=== PATIENT | female | born 1975 | race Two or more races ===

== ENCOUNTER 2024-03-11 16:21 | Emergency (ER) | payer OTHER ==
[~2024-03-11] VITALS: Ht 167.6 cm; Wt 91.0 kg
[2024-03-11 16:30] VITALS: O2SAT 99
[2024-03-11] MEDS: LORAZEPAM 0.5MG TABLET PO ONE (17:45)
[2024-03-11 17:46] LABS: BASOPHILS % 0.7 % (0.0-2.0); EOSINOPHILS % 2.3 % (0.0-5.0); HEMATOCRIT. 38.7 % (36.0-48.0); HEMOGLOBIN. 13.3 g/dL (12.0-16.0); MEAN CORPUSCULAR HEMOGLOBIN 29.5 pg (28.0-32.0); MEAN CORPUSCULAR HGB CONC 34.3 g/dL (31.0-37.0); MEAN CORPUSCULAR VOLUME 86.1 fL (81.0-99.0); MEAN PLATELET VOLUME 9.2 fl (7.4-10.4); MONOCYTES % 6.9 % (2.0-8.0); NEUTROPHILS % 54.1 % (40.0-76.0); PLATELET 224 x1000/uL (130-400); RED BLOOD CELL COUNT 4.49 mill/uL (4.2-5.4); RED CELL DISTRIBUTION WIDTH 12.2 % (11.6-14.6); WHITE BLOOD COUNT 5.2 x1000/uL (4.5-11.0)
[2024-03-11 18:03] LABS: TROPONIN I HIGH SENSITIVITY < 4 ng/L (3.0-34)
[2024-03-11 18:04] LABS: T4 FREE 2.07 ng/dL (0.89-1.76); THYROID STIMULATING HORMONE < 0.10 uIU/mL (0.55-4.78)
[2024-03-11 18:16] LABS: CHLORIDE 106 mEq/L (98-107); POTASSIUM 3.6 mEq/L (3.5-5.1); SODIUM 142 mEq/L (136-145)
[2024-03-11 18:17] LABS: CALCIUM 9.5 mg/dL (8.7-10.4); CARBON DIOXIDE 24 mEq/L (21-32)
[2024-03-11 18:22] LABS: CREATININE 0.7 mg/dL (0.6-1.0); GLUCOSE 136 mg/dL (70-105); UREA NITROGEN BLOOD 14 mg/dL (9-23)
[2024-03-11] MEDS ORDERED: LORA-249 PO (18:59)
[2024-03-11 20:13] VITALS: BP 137/66; PULSE 89; RESP 18; TEMP 98
== END 2024-03-11 20:10 | disposition home or self-care (01) ==
LOC: ER 16:35
DX: F41.9 Anxiety disorder, unspecified (principal); I10 Essential (primary) hypertension; E05.90 Thyrotoxicosis, unspecified without thyrotoxic crisis or storm; E05.00 Thyrotoxicosis with diffuse goiter without thyrotoxic crisis or storm; Z90.49 Acquired absence of other specified parts of digestive tract; Z88.0 Allergy status to penicillin; Z88.6 Allergy status to analgesic agent; Z98.890 Other specified postprocedural states
CPT/HCPCS: 36415; 80048; 82962; 84439; 84443; 84484; 85025; 93005; 99284